=== PATIENT | female | born 1975 | race Caucasian/White ===

== ENCOUNTER 2022-02-06 18:16 | Emergency (ER) | payer BC, SELFPAY ==
[2022-02-06 18:20] VITALS: BP 141/85; PULSE 135; RESP 22; TEMP 36.9; O2SAT 97; BMI 29.2
--- NOTE | 2022-02-06 18:57 | ED.GENADULT ---
HPI - General Adult General Chief complaint: Upper Respiratory Symptoms Stated complaint: trach issues Time Seen by Provider: 02/06/22 18:31 Source: patient Mode of arrival: ambulatory Limitations: no limitations History of Present Illness HPI narrative: Patient comes emergency room afterpulling out her tracheostomy tube to get it cleaned. Patient had it inserted surgically initially in August of 2021. Today, patient had a mucus plug, planted out, and was unable to reinsert her tracheostomy tube. Review of Systems Review of Systems: Constitutional : No Weight loss, No Fever, No Chills, No Night Sweats, No Fatigue, No Malaise ENT/Mouth : Unable to reinsert tracheostomy tube. No Hearing loss, No Ear Pain, No Nasal Congestion, No Sinus Pain, No Hoarseness, No sore throat, No Rhinorrhea, No Swallowing Difficulty Eyes: No Eye Pain, No Swelling, No Redness, No Foreign Body, No Discharge, No Vision Changes Cardiovascular : No Chest Pain, No SOB, No Dyspnea on Exertion, No Orthopnea, No Edema, No Palpitations Respiratory : No Cough, No Sputum, No Wheezing, No Smoke Exposure, No Dyspnea Gastrointestinal : No Nausea, No Vomiting, No Diarrhea, No Constipation, No abdominal Pain, No Hematochezia, No Melena Genitourinary : no irregular bleeding, No Dysuria, No Urinary Frequency, No Hematuria, No Urinary Incontinence, No Urgency, No Flank Pain, No Urinary Flow Changes, No Hesitancy Musculoskeletal : No joint pain, No Myalgias, No Joint Swelling Skin : No Skin Lesions, No rash Neuro : No Weakness, No Numbness, No Paresthesias, No Loss of Consciousness, No Dizziness, No Headache Psych : No Anxiety/Panic, No Depression, No SI/HI/AH/VH, No Social Issues, Heme/Lymph: No Bruising, No Bleeding,No Lymphadenopathy Endocrine : No Polyuria, No Polydipsia, No Temperature Intolerance PMF Past Medical History Medical History Hypothyroid Tracheostomy in place Social History Social History Advance Directives: No Advance Directives Information Provided: No Physical Exam ED Vital Signs: Vital Signs - 24 hr 02/06/22 18:20 Temperature 98.5 F Pulse Rate 135 H Respiratory Rate 22 H Blood Pressure 141/85 H Pulse Oximetry 97 BMI result Body Mass Index 29.2 Const Other: Appearance: Alert. Oriented X3. No acute distress. Eyes: Pupils equal, round and reactive to light. ENT: Pharynx normal. Mild bleeding from the tracheostomy site. ET tube inserted in the meantime. Neck: Normal inspection. Neck supple. No lymph nodes noted. No crepitus CVS: Normal heart rate and rhythm. Pulses normal. Normal S1 and S2 Respiratory: No respiratory distress. Breath sounds normal. No Wheezing. No rales Abdomen: Soft and nontender. No rigidity. No distention. Skin: Skin warm and dry. Normal skin color. Normal skin turgor. Extremities: No lower extremity edema. No Lacerations. No Rash Neuro: Oriented X 3. No motor deficit. No sensory deficit. Moving all extremities. No slurred speech. CN 2 through 12 grossly intact Psych: calm, cooperative, normal affect Course Course Course Narrative: We tried to reinsert the same size that the patient had, however it did not fit. Instead, patient has a smaller size now, this inserted trach is a 6.0mm Bivona TTS, which worked well for the patient Discharge Plan Discharge Clinical Impression: Tracheostomy malfunction Patient Disposition: Home, Self-Care Instructions: Tracheostomy Care (ED) Additional Instructions: Now you have a 6.0mm Bivon TTS. Please follow-up with your primary care physician tomorrow. If you have any worsening or new symptoms, please return to the emergency room or call 911
== END 2022-02-06 19:51 | disposition home or self-care (01) ==
PROVIDERS: Emergency Provider Emergency Medicine; PCP Internal Medicine
DX: J95.03 Malfunction of tracheostomy stoma (principal)
CPT/HCPCS: 99283; 99284